=== PATIENT | male | born 1960 | race Caucasian/White ===

== ENCOUNTER → 2016-08-26 | Outpatient (CLI) | payer OTHER ==
[2015-02-26 05:15] VITALS: BP 160/95
[~2016-08-26] MED LIST: AMLODIPINE BESY1 C17 PO; CIPRO250 M1 PO; FLOMAX 0.40.4 MG/CAP PO; GLUCOPHAGE XR500 M2 PO; HCTZ 25MG25 MG PO; RT ADVAIR 228 DISKUS IH; SINGULAIR 110 MG/TAB PO
== END ==
LOC: LAB 07:53
DX: Z00.00 Encounter for general adult medical examination without abnormal findings (principal); Z12.5 Encounter for screening for malignant neoplasm of prostate; I10 Essential (primary) hypertension; E11.9 Type 2 diabetes mellitus without complications

== ENCOUNTER 2017-02-02 08:03 | Emergency (ER) | payer BC ==
[~2017-02-02] VITALS: Ht 180.3 cm; Wt 141.8 kg
[2017-02-02 10:58] VITALS: BP 136/88
== END 2017-02-02 10:48 | disposition short-term general hospital (02) ==
LOC: ED 08:03
DX: K35.80 Unspecified acute appendicitis (principal); E11.9 Type 2 diabetes mellitus without complications; Z79.84 Long term (current) use of oral hypoglycemic drugs; I10 Essential (primary) hypertension
CPT/HCPCS: J2270; J2405; J3010; Q9967

== ENCOUNTER 2017-02-13 07:42 | Inpatient (IN) | payer BC ==
[~2017-02-13] VITALS: Ht 180.3 cm; Wt 138.3 kg
[2017-02-13 11:31] VITALS: BP 135/72
[2017-02-13 11:35] VITALS: BP 135/72
[2017-02-13 15:03] VITALS: BP 121/65
[2017-02-13 18:16] VITALS: BP 127/67
[2017-02-13 23:24] VITALS: BP 140/72
[2017-02-14 02:52] VITALS: BP 126/85
[2017-02-14 06:21] VITALS: BP 134/80
[2017-02-14 11:13] VITALS: BP 131/76
[2017-02-14 15:13] VITALS: BP 151/83
[2017-02-14] MEDS ORDERED: GLUCOPHAGE PO (16:49)
[2017-02-14] MEDS ORDERED: DESYREL 100MG100 MG PO (16:50)
[2017-02-14 18:20] VITALS: BP 127/82
[2017-02-14 23:09] VITALS: BP 128/65
[2017-02-15 02:53] VITALS: BP 149/80
[2017-02-15 06:28] VITALS: BP 147/81
[2017-02-15] MEDS ORDERED: CIPRO 500MG TA500 MG PO (09:25)
[2017-02-15] MEDS ORDERED: METRONIDAZOLE500 M1 PO (09:26)
== END 2017-02-15 10:10 | disposition home or self-care (01) | DRG 373 ==
LOC: ED 07:42 → MED/SURG 11:01
PROVIDERS: ADMIT Nurse Practitioner Primary Care
DX: K65.0 Generalized (acute) peritonitis (principal); E11.9 Type 2 diabetes mellitus without complications; I10 Essential (primary) hypertension
CPT/HCPCS: J0744; J1885; J2270; J2405; J7030; Q9967

== ENCOUNTER → 2017-02-24 | Outpatient (CLI) | payer BC ==
[2017-02-15 06:28] VITALS: BP 147/81
[~2017-02-24] MED LIST changes: +CIPRO 500MG TA500 MG PO; +DESYREL 100MG100 MG PO; +GLUCOPHAGE PO; +METRONIDAZOLE500 M1 PO
== END ==
LOC: LAB 12:14
DX: R19.7 Diarrhea, unspecified (principal)

== ENCOUNTER → 2017-04-23 | Outpatient (CLI) | payer BC ==
[2017-04-23 07:59] LABS: HEMATOCRIT 46.3 % (42.0-52.0); HEMOGLOBIN 15.7 g/dL (13.5-18.0); MEAN CELL VOLUME 83 fl (78-100); MEAN CORPUSCULAR HEMOGLOBIN 28 pg (27-31); MEAN CORPUSCULAR HGB CONC 34 g/dL (33-37); PLATELET COUNT 303 K/mm3 (130-400); RED BLOOD COUNT 5.57 M/mm3 (4.20-5.60); RED CELL DISTRIBUTION WIDTH 16.4 % (11.5-14.5); WHITE BLOOD COUNT 7.9 K/mm3 (4.8-10.8)
[2017-04-23 08:12] LABS: ALBUMIN 4.1 g/dL (3.5-5.0); BUN/CREATININE RATIO 11.4 (6.0-26.0); CALCIUM 9.6 mg/dL (8.4-10.2); TOTAL BILIRUBIN 0.8 mg/dL (0.2-1.3); TOTAL PROTEIN 7.2 g/dL (6.3-8.2)
[2017-04-23 08:35] LABS: LYMPHOCYTE 18 % (20-51); MONOCYTE 9 % (3-10); NEUTROPHILS 71 % (42-75)
== END ==
LOC: LAB 07:46
PROVIDERS: Nurse Practitioner Family
DX: Z00.00 Encounter for general adult medical examination without abnormal findings (principal); Z12.5 Encounter for screening for malignant neoplasm of prostate; E11.9 Type 2 diabetes mellitus without complications; I10 Essential (primary) hypertension

== ENCOUNTER → 2018-02-04 | Outpatient (CLI) | payer OTHER ==
[2018-02-04 08:18] LABS: BASO # 0.1 (0.02-0.10); EOS # 0.3 (0.04-0.40); EOS % 4.5 % (0.0-4.0); HEMATOCRIT 38.9 % (42.0-52.0); HEMOGLOBIN 12.5 g/dL (13.5-18.0); MEAN CELL VOLUME 72 fl (78-100); MEAN CORPUSCULAR HEMOGLOBIN 23 pg (27-31); MEAN CORPUSCULAR HGB CONC 32 g/dL (33-37); MEAN PLATELET VOLUME 9.6 fl (7.4-10.4); MONO # 0.7 (0.20-0.80); NEU # 4.2 (1.40-6.50); PLATELET COUNT 423 K/mm3 (130-400); RED BLOOD COUNT 5.37 M/mm3 (4.20-5.60); RED CELL DISTRIBUTION WIDTH 17.2 % (11.5-14.5); WHITE BLOOD COUNT 7.3 K/mm3 (4.8-10.8)
[2018-02-04 08:35] LABS: ALBUMIN 4.1 g/dL (3.5-5.0); TOTAL BILIRUBIN 0.5 mg/dL (0.2-1.3)
== END ==
LOC: LAB 08:03
PROVIDERS: Family Medicine
DX: Z12.5 Encounter for screening for malignant neoplasm of prostate (principal); Z00.00 Encounter for general adult medical examination without abnormal findings; E11.9 Type 2 diabetes mellitus without complications; I10 Essential (primary) hypertension

== ENCOUNTER → 2018-03-09 | Day surgery (SDC) | payer OTHER | LOC: MSO 13:02 | DX: K22.70 Barrett's esophagus without dysplasia (principal); K21.9 Gastro-esophageal reflux disease without esophagitis; K44.9 Diaphragmatic hernia without obstruction or gangrene; I10 Essential (primary) hypertension; J45.909 Unspecified asthma, uncomplicated; G47.33 Obstructive sleep apnea (adult) (pediatric); E11.9 Type 2 diabetes mellitus without complications; Z79.84 Long term (current) use of oral hypoglycemic drugs; Z79.82 Long term (current) use of aspirin; Z79.899 Other long term (current) drug therapy | CPT/HCPCS: 00731; A4649; J2704; J7030 ==

== ENCOUNTER → 2018-06-14 | Outpatient (CLI) | payer OTHER ==
[~2018-06-14] VITALS: Ht 180.3 cm; Wt 140.9 kg
[~2018-06-14] MED LIST changes: +ADULT ASPIRIN81 MG PO; +DESYREL50 MG PO; +FERROUS SULFATE65 MG PO; +GLUCOSAMINE PO; +PROAIR HFA0.09 MG/AC IH
[2018-06-14 16:21] VITALS: BP 146/90
== END ==
LOC: AMSURD 15:30
DX: R07.9 Chest pain, unspecified (principal)

== ENCOUNTER → 2018-06-18 | Outpatient (CLI) | payer OTHER ==
[2018-06-14 16:21] VITALS: BP 146/90
== END ==
LOC: CARDLAB 13:46 → CARDREHAB 14:57
DX: R07.9 Chest pain, unspecified (principal)

== ENCOUNTER → 2019-02-15 | Outpatient (CLI) | payer OTHER ==
[2018-06-14 16:21] VITALS: BP 146/90
[2019-02-15 11:54] LABS: BASO # 0.1 (0.02-0.10); EOS # 0.4 (0.04-0.40); EOS % 4.6 % (0.0-4.0); HEMATOCRIT 46.5 % (42.0-52.0); HEMOGLOBIN 15.8 g/dL (13.5-18.0); LYMPH# 1.9 (1.50-4.00); MEAN CELL VOLUME 90 fl (78-100); MEAN CORPUSCULAR HEMOGLOBIN 31 pg (27-31); MEAN CORPUSCULAR HGB CONC 34 g/dL (33-37); MONO # 0.8 (0.20-0.80); NEU # 5.1 (1.40-6.50); PLATELET COUNT 298 K/mm3 (130-400); RED BLOOD COUNT 5.18 M/mm3 (4.20-5.60); RED CELL DISTRIBUTION WIDTH 13.3 % (11.5-14.5); WHITE BLOOD COUNT 8.3 K/mm3 (4.8-10.8)
[2019-02-15 11:55] LABS: ALBUMIN 4.2 g/dL (3.5-5.0); POTASSIUM 3.7 mmol/L (3.5-5.1)
[2019-02-15 11:57] LABS: TOTAL PROTEIN 7.1 g/dL (6.4-8.3)
[2019-02-15 11:59] LABS: TOTAL BILIRUBIN 0.7 mg/dL (0.2-1.2)
== END ==
LOC: LAB 11:30
PROVIDERS: Family Medicine
DX: Z00.00 Encounter for general adult medical examination without abnormal findings (principal); Z12.5 Encounter for screening for malignant neoplasm of prostate; E11.9 Type 2 diabetes mellitus without complications; I10 Essential (primary) hypertension

== ENCOUNTER → 2019-03-02 | Day surgery (SDC) | payer OTHER ==
[2018-06-14 16:21] VITALS: BP 146/90
== END ==
LOC: MSO 13:32
DX: H25.12 Age-related nuclear cataract, left eye (principal); H25.041 Posterior subcapsular polar age-related cataract, right eye; D64.9 Anemia, unspecified; J44.9 Chronic obstructive pulmonary disease, unspecified; I10 Essential (primary) hypertension; E11.9 Type 2 diabetes mellitus without complications; Z79.84 Long term (current) use of oral hypoglycemic drugs; Z90.49 Acquired absence of other specified parts of digestive tract; Z79.899 Other long term (current) drug therapy; Z79.82 Long term (current) use of aspirin; K21.9 Gastro-esophageal reflux disease without esophagitis; G47.33 Obstructive sleep apnea (adult) (pediatric); E66.01 Morbid (severe) obesity due to excess calories
CPT/HCPCS: 00142; J0171; J2250; J3010; V2632

== ENCOUNTER → 2019-03-30 | Day surgery (SDC) | payer OTHER ==
[2018-06-14 16:21] VITALS: BP 146/90
== END | disposition home or self-care (01) ==
LOC: MSO 12:01
DX: H25.11 Age-related nuclear cataract, right eye (principal); J44.9 Chronic obstructive pulmonary disease, unspecified; I10 Essential (primary) hypertension; D64.9 Anemia, unspecified; R73.03 Prediabetes; Z90.49 Acquired absence of other specified parts of digestive tract; Z79.899 Other long term (current) drug therapy; Z79.84 Long term (current) use of oral hypoglycemic drugs
CPT/HCPCS: 00142; J0171; J2250; V2632

== ENCOUNTER → 2019-04-13 | Outpatient (CLI) | payer OTHER ==
[2018-06-14 16:21] VITALS: BP 146/90
== END ==
LOC: LAB 17:20
DX: N39.0 Urinary tract infection, site not specified (principal)

== ENCOUNTER → 2019-04-26 | Outpatient (CLI) | payer OTHER ==
[2018-06-14 16:21] VITALS: BP 146/90
== END ==
LOC: RAD 12:54
DX: N20.0 Calculus of kidney (principal); N28.1 Cyst of kidney, acquired; Z90.49 Acquired absence of other specified parts of digestive tract
CPT/HCPCS: Q9967

== ENCOUNTER → 2019-06-02 | Outpatient (CLI) | payer OTHER ==
[2018-06-14 16:21] VITALS: BP 146/90
[2019-06-02 15:44] LABS: ALBUMIN 4.2 g/dL (3.5-5.0); CALCIUM 9.2 mg/dL (8.3-10.5); POTASSIUM 3.5 mmol/L (3.5-5.1); TOTAL BILIRUBIN 0.8 mg/dL (0.2-1.2); TOTAL PROTEIN 7.3 g/dL (6.4-8.3)
== END ==
LOC: LAB 14:03
PROVIDERS: Family Medicine
DX: Z00.00 Encounter for general adult medical examination without abnormal findings (principal); Z12.5 Encounter for screening for malignant neoplasm of prostate; E11.9 Type 2 diabetes mellitus without complications; I10 Essential (primary) hypertension

== ENCOUNTER → 2019-11-21 | Outpatient (CLI) | payer OTHER ==
[2018-06-14 16:21] VITALS: BP 146/90
[~2019-11-21] MED LIST changes: +ADULT ASPIRIN R81 MG PO; -ADULT ASPIRIN81 MG PO; +DAILY VITAMIN1 EAC3 PO; +NORCO 325 MG-51 TA1 PO; +OMEGA 3 1,0001 EACH PO
== END ==
LOC: LAB 13:55
DX: Z20.828 Contact with and (suspected) exposure to other viral communicable diseases (principal)

== ENCOUNTER 2019-12-07 15:58 | Emergency (ER) | payer OTHER ==
[~2019-12-07 15:58] MED LIST changes: -DAILY VITAMIN1 EAC3 PO; -NORCO 325 MG-51 TA1 PO; -OMEGA 3 1,0001 EACH PO
[2019-12-07 16:46] LABS: BASO # 0.1 (0.02-0.10); EOS # 0.4 (0.04-0.40); EOS % 3.4 % (0.0-4.0); HEMATOCRIT 47.6 % (42.0-52.0); HEMOGLOBIN 16.3 g/dL (13.5-18.0); LYMPH# 1.9 (1.50-4.00); MEAN CELL VOLUME 90 fl (78-100); MEAN CORPUSCULAR HEMOGLOBIN 31 pg (27-31); MEAN CORPUSCULAR HGB CONC 34 g/dL (33-37); NEU # 6.8 (1.40-6.50); PLATELET COUNT 330 K/mm3 (130-400); RED CELL DISTRIBUTION WIDTH 13.7 % (11.5-14.5); WHITE BLOOD COUNT 10.3 K/mm3 (4.8-10.8)
[2019-12-07 16:51] LABS: POTASSIUM 3.8 mmol/L (3.5-5.1)
[2019-12-07 16:52] LABS: CALCIUM 9.1 mg/dL (8.3-10.5)
[2019-12-07 16:53] LABS: TOTAL PROTEIN 6.6 g/dL (6.4-8.3)
[2019-12-07 16:55] LABS: TOTAL BILIRUBIN 0.6 mg/dL (0.2-1.2)
[2019-12-07 17:48] VITALS: BP 97/59
[2019-12-07] MEDS ORDERED: NORCO 325 MG-51 TA1 PO (17:56)
[2019-12-07] MEDS ORDERED: DAILY VITAMIN1 EAC3 PO (17:57)
[2019-12-07] MEDS ORDERED: OMEGA 3 1,0001 EACH PO (17:58)
== END 2019-12-07 18:11 | disposition home or self-care (01) ==
LOC: ED 15:58
PROVIDERS: Physician Assistant
DX: E86.0 Dehydration (principal); E11.9 Type 2 diabetes mellitus without complications; I10 Essential (primary) hypertension; Z20.828 Contact with and (suspected) exposure to other viral communicable diseases; Z79.82 Long term (current) use of aspirin; Z79.84 Long term (current) use of oral hypoglycemic drugs; Z90.49 Acquired absence of other specified parts of digestive tract
CPT/HCPCS: J7030

== ENCOUNTER → 2020-04-17 | Outpatient (CLI) | payer OTHER ==
[~2020-04-17] MED LIST changes: +DAILY VITAMIN1 EAC3 PO; +NORCO 325 MG-51 TA1 PO; +OMEGA 3 1,0001 EACH PO
[2020-04-17 08:05] LABS: HEMATOCRIT 49.5 % (42.0-52.0); HEMOGLOBIN 16.8 g/dL (13.5-18.0); RED BLOOD COUNT 5.6 M/mm3 (4.20-5.60); RED CELL DISTRIBUTION WIDTH 13.2 % (11.5-14.5); WHITE BLOOD COUNT 9.8 K/mm3 (4.8-10.8)
[2020-04-17 08:28] LABS: ALBUMIN 4.2 g/dL (3.4-4.8); POTASSIUM 3.9 mmol/L (3.5-5.1)
[2020-04-17 08:30] LABS: CALCIUM 9.5 mg/dL (8.3-10.5)
[2020-04-17 08:31] LABS: TOTAL PROTEIN 7.8 g/dL (6.2-8.1)
[2020-04-17 08:33] LABS: TOTAL BILIRUBIN 0.6 mg/dL (0.2-1.2)
== END ==
LOC: LAB 07:43
PROVIDERS: Family Medicine
DX: Z00.00 Encounter for general adult medical examination without abnormal findings (principal); Z12.5 Encounter for screening for malignant neoplasm of prostate; I10 Essential (primary) hypertension; K22.70 Barrett's esophagus without dysplasia; G47.33 Obstructive sleep apnea (adult) (pediatric); E11.9 Type 2 diabetes mellitus without complications; J30.9 Allergic rhinitis, unspecified

== ENCOUNTER → 2020-08-08 | Outpatient (REF) | LOC: LAB 08:01 | DX: Z20.822 Contact with and (suspected) exposure to COVID-19 (principal) ==

== ENCOUNTER → 2021-01-18 | Outpatient (CLI) | payer OTHER | LOC: LAB 15:20 | DX: Z01.818 Encounter for other preprocedural examination (principal); Z20.822 Contact with and (suspected) exposure to COVID-19 ==

== ENCOUNTER → 2021-05-24 | Outpatient (CLI) | payer OTHER ==
[2021-05-24 10:24] LABS: BASO # 0.07 K/mm3 (0.02-0.10); EOS # 0.36 K/mm3 (0.04-0.40); EOS % 3.7 % (0.0-4.0); HEMATOCRIT 45.9 % (42.0-52.0); HEMOGLOBIN 14.8 g/dL (13.5-18.0); LYMPH# 2.05 K/mm3 (1.50-4.00); MEAN CELL VOLUME 84 fl (78-100); MEAN CORPUSCULAR HEMOGLOBIN 27 pg (27-31); MEAN CORPUSCULAR HGB CONC 32 g/dL (33-37); MEAN PLATELET VOLUME 9.5 fl (7.4-10.4); MONO # 0.74 K/mm3 (0.20-0.80); NEU # 6.53 K/mm3 (1.40-6.50); PLATELET COUNT 352 K/mm3 (130-400); RED BLOOD COUNT 5.47 M/mm3 (4.20-5.60); RED CELL DISTRIBUTION WIDTH 13.4 % (11.5-14.5); WHITE BLOOD COUNT 9.8 K/mm3 (4.8-10.8)
[2021-05-24 10:26] LABS: POTASSIUM 4.1 mmol/L (3.5-5.1)
[2021-05-24 10:27] LABS: ALBUMIN 4.1 g/dL (3.4-4.8)
[2021-05-24 10:28] LABS: CALCIUM 9.6 mg/dL (8.3-10.5)
[2021-05-24 10:29] LABS: TOTAL PROTEIN 7.2 g/dL (6.2-8.1)
[2021-05-24 10:31] LABS: TOTAL BILIRUBIN 0.6 mg/dL (0.2-1.2)
[2021-05-24 12:08] LABS: URINE APPEARANCE CLEAR; URINE COLOR YELLOW
[2021-05-24 12:09] LABS: URINE BILIRUBIN NEGATIVE (NEGATIVE); URINE BLOOD NEGATIVE (NEGATIVE); URINE GLUCOSE NEGATIVE (NEGATIVE); URINE KETONE NEGATIVE (NEGATIVE); URINE LEUKOCYTE ESTERASE NEGATIVE (NEGATIVE); URINE MUCUS PRESENT (NOT PRESENT); URINE NITRATE NEGATIVE (NEGATIVE); URINE PROTEIN(semi-quant) TRACE mg/dL (NEGATIVE); URINE UROBILINOGEN NORMAL (NORMAL)
== END ==
LOC: LAB 10:00
PROVIDERS: Family Medicine
DX: Z00.00 Encounter for general adult medical examination without abnormal findings (principal); E78.5 Hyperlipidemia, unspecified; E11.9 Type 2 diabetes mellitus without complications; N39.0 Urinary tract infection, site not specified

== ENCOUNTER → 2022-01-01 | Outpatient (REF) ==
[~2022-01-01] MED LIST changes: +ALBUTEROL2.5 MG/3 M IH; +BENZONATATE200 MG PO; +HYDROCODONE PO473 ML PO; +LEVOFLOXACIN750 MG PO; +PREDNISONE20 MG PO
== END ==
LOC: LAB 11:09
DX: Z20.822 Contact with and (suspected) exposure to COVID-19 (principal)

== ENCOUNTER → 2022-01-01 | Day surgery (SDC) | payer OTHER | LOC: MSO 11:04 | DX: H25.041 Posterior subcapsular polar age-related cataract, right eye (principal) ==

== ENCOUNTER → 2022-01-02 | Outpatient (CLI) | payer OTHER | LOC: LAB 16:41 | DX: Z20.822 Contact with and (suspected) exposure to COVID-19 (principal) ==

== ENCOUNTER → 2022-01-07 | Outpatient (CLI) | payer OTHER ==
[~2022-01-07] VITALS: Ht 180.3 cm; Wt 144.9 kg
[2022-01-07 11:27] LABS: HEMATOCRIT 39.2 % (42.0-52.0); HEMOGLOBIN 12.2 g/dL (13.5-18.0); MEAN CELL VOLUME 72 fl (78-100); MEAN CORPUSCULAR HEMOGLOBIN 22 pg (27-31); MEAN CORPUSCULAR HGB CONC 31 g/dL (33-37); MEAN PLATELET VOLUME 8.7 fl (7.4-10.4); PLATELET COUNT 396 K/mm3 (130-400); RED BLOOD COUNT 5.44 M/mm3 (4.20-5.60); RED CELL DISTRIBUTION WIDTH 16.8 % (11.5-14.5)
[2022-01-07 11:35] LABS: ALBUMIN 4.3 g/dL (3.4-4.8); POTASSIUM 3.7 mmol/L (3.5-5.1)
[2022-01-07 11:36] LABS: CALCIUM 9.6 mg/dL (8.3-10.5)
[2022-01-07 11:37] LABS: TOTAL PROTEIN 7.4 g/dL (6.2-8.1)
[2022-01-07 11:39] LABS: TOTAL BILIRUBIN 0.4 mg/dL (0.2-1.2)
[2022-01-07 11:44] LABS: MAGNESIUM 1.7 mg/dL (1.60-2.60)
[2022-01-07 12:16] LABS: LYMPHOCYTE 17 % (20-51); MONOCYTE 7 % (3-10); NEUTROPHILS 58 % (42-75)
[2022-01-07 13:05] VITALS: BP 107/84
[2022-01-07 14:33] LABS: POTASSIUM 3.6 mmol/L (3.5-5.1)
== END ==
LOC: LAB 11:11 → AMSURD 11:11
PROVIDERS: Nurse Practitioner Family
DX: R05.1 Acute cough (principal); R19.5 Other fecal abnormalities; M79.10 Myalgia, unspecified site
CPT/HCPCS: J7030

== ENCOUNTER 2022-01-14 14:11 | Emergency (ER) | payer OTHER ==
[~2022-01-14] VITALS: Ht 182.9 cm; Wt 144.9 kg
[~2022-01-14 14:11] MED LIST changes: -ALBUTEROL2.5 MG/3 M IH; -BENZONATATE200 MG PO; -HYDROCODONE PO473 ML PO; -LEVOFLOXACIN750 MG PO; -PREDNISONE20 MG PO
[2022-01-14 14:59] LABS: HEMATOCRIT 39.4 % (42.0-52.0); HEMOGLOBIN 12.2 g/dL (13.5-18.0); MEAN CELL VOLUME 73 fl (78-100); MEAN CORPUSCULAR HEMOGLOBIN 23 pg (27-31); MEAN CORPUSCULAR HGB CONC 31 g/dL (33-37); PLATELET COUNT 417 K/mm3 (130-400); RED BLOOD COUNT 5.42 M/mm3 (4.20-5.60); RED CELL DISTRIBUTION WIDTH 17.3 % (11.5-14.5); WHITE BLOOD COUNT 13.2 K/mm3 (4.8-10.8)
[2022-01-14 15:10] LABS: ALBUMIN 4.1 g/dL (3.4-4.8)
[2022-01-14 15:11] LABS: POTASSIUM 3.7 mmol/L (3.5-5.1)
[2022-01-14 15:12] LABS: CALCIUM 9.4 mg/dL (8.3-10.5)
[2022-01-14 15:13] LABS: TOTAL PROTEIN 7.4 g/dL (6.2-8.1)
[2022-01-14 15:15] LABS: TOTAL BILIRUBIN 0.6 mg/dL (0.2-1.2)
[2022-01-14 15:57] LABS: LYMPHOCYTE 17 % (20-51); MONOCYTE 5 % (3-10); NEUTROPHILS 59 % (42-75)
[2022-01-14 16:05] LABS: ERYTHROCYTE SEDIMENTATION RATE 7 mm/hr (0-20)
[2022-01-14] MEDS ORDERED: ALBUTEROL2.5 MG/3 M IH (16:06)
[2022-01-14] MEDS ORDERED: HYDROCODONE PO473 ML PO (16:06)
[2022-01-14] MEDS ORDERED: BENZONATATE200 MG PO (16:06)
[2022-01-14] MEDS ORDERED: PREDNISONE20 MG PO (16:06)
[2022-01-14] MEDS ORDERED: LEVOFLOXACIN750 MG PO (16:06)
[2022-01-14 16:26] VITALS: BP 121/75
== END 2022-01-14 16:27 | disposition home or self-care (01) ==
LOC: ED 14:11
PROVIDERS: Physician Assistant
DX: J44.1 Chronic obstructive pulmonary disease with (acute) exacerbation (principal)

== ENCOUNTER → 2022-01-29 | Day surgery (SDC) | payer OTHER ==
[~2022-01-29] MED LIST changes: +ALBUTEROL2.5 MG/3 M IH; +BENZONATATE200 MG PO; +HYDROCODONE PO473 ML PO; +LEVOFLOXACIN750 MG PO; +PREDNISONE20 MG PO
== END ==
LOC: MSO 11:08
DX: H26.492 Other secondary cataract, left eye (principal)

== ENCOUNTER → 2022-02-12 | Outpatient (CLI) | payer OTHER | LOC: VAS 13:47 → RAD 14:00 | DX: R05.3 Chronic cough (principal) ==

== ENCOUNTER 2022-09-02 15:40 | Emergency (ER) | payer BC ==
[~2022-09-02] VITALS: Ht 180.3 cm; Wt 130.0 kg
[2022-09-02] MEDS ORDERED: ANTIFUNGAL30 GM TP (15:57)
[2022-09-02 15:58] LABS: EOS # 0.31 K/mm3 (0.04-0.40); EOS % 3.5 % (0.0-4.0); HEMATOCRIT 37.3 % (42.0-52.0); HEMOGLOBIN 11.3 g/dL (13.5-18.0); LYMPH# 1.35 K/mm3 (1.50-4.00); MEAN CELL VOLUME 68 fl (78-100); MEAN CORPUSCULAR HEMOGLOBIN 21 pg (27-31); MEAN CORPUSCULAR HGB CONC 30 g/dL (33-37); MEAN PLATELET VOLUME 9.1 fl (7.4-10.4); PLATELET COUNT 419 K/mm3 (130-400); RED BLOOD COUNT 5.46 M/mm3 (4.20-5.60); RED CELL DISTRIBUTION WIDTH 18.5 % (11.5-14.5); WHITE BLOOD COUNT 8.8 K/mm3 (4.8-10.8)
[2022-09-02 16:10] LABS: ALBUMIN 4.2 g/dL (3.4-4.8); POTASSIUM 3.5 mmol/L (3.5-5.1); SODIUM 136 mmol/L (136-145)
[2022-09-02 16:11] LABS: CALCIUM 9.4 mg/dL (8.3-10.5)
[2022-09-02 16:12] LABS: GLUCOSE 139 mg/dL (75-110); TOTAL PROTEIN 6.9 g/dL (6.2-8.1)
[2022-09-02 16:13] LABS: CARBON DIOXIDE 24 mmol/L (23-31)
[2022-09-02 16:14] LABS: TOTAL BILIRUBIN 0.3 mg/dL (0.2-1.2)
[2022-09-02 16:17] LABS: AST-SGOT 16 U/L (5-34)
[2022-09-02 16:19] LABS: ALT/SGPT 22 U/L (0-55)
[2022-09-02 16:27] LABS: TROPONIN-I < 0.030 ng/mL (<0.030)
[2022-09-02] MEDS ORDERED: VALACYCLOVIR1 GM PO (16:56)
[2022-09-02] MEDS ORDERED: NORCO 325 MG-51 TA1 PO (17:01)
[2022-09-02 17:10] VITALS: BP 125/85
== END 2022-09-02 17:15 | disposition home or self-care (01) ==
LOC: ED 15:40
PROVIDERS: Physician Assistant
DX: B02.9 Zoster without complications (principal)

== ENCOUNTER → 2023-03-10 | Outpatient (CLI) | payer BC ==
[~2023-03-10] MED LIST changes: +ANTIFUNGAL30 GM TP; +VALACYCLOVIR1 GM PO
== END ==
LOC: LAB 14:28
DX: Z20.822 Contact with and (suspected) exposure to COVID-19 (principal)

== ENCOUNTER 2023-10-08 06:04 | Emergency (ER) | payer BC ==
[~2023-10-08] VITALS: Ht 167.6 cm; Wt 134.2 kg
[~2023-10-08 06:04] MED LIST changes: +BENAZEPRIL40 MG PO; +METFORMIN HYD1000 MG PO; +NORVASC 10MG10 MG PO
[2023-10-08] MEDS ORDERED: NS 1,000 ML IV ONE (06:45)
[2023-10-08 06:59] LABS: BASO # 0.11 K/mm3 (0.02-0.10); EOS # 0.75 K/mm3 (0.04-0.40); EOS % 10.2 % (0.0-4.0); HEMOGLOBIN 11.1 g/dL (13.5-18.0); LYMPH# 1.73 K/mm3 (1.50-4.00); MEAN CELL VOLUME 70 fl (78-100); MEAN CORPUSCULAR HEMOGLOBIN 21 pg (27-31); MEAN CORPUSCULAR HGB CONC 30 g/dL (33-37); MEAN PLATELET VOLUME 9.1 fl (7.4-10.4); MONO # 0.53 K/mm3 (0.20-0.80); NEU # 4.21 K/mm3 (1.40-6.50); PLATELET COUNT 400 K/mm3 (130-400); RED BLOOD COUNT 5.32 M/mm3 (4.20-5.60); RED CELL DISTRIBUTION WIDTH 19.1 % (11.5-14.5); WHITE BLOOD COUNT 7.4 K/mm3 (4.8-10.8)
[2023-10-08 07:03] LABS: ALBUMIN 3.9 g/dL (3.4-4.8); SODIUM 139 mmol/L (136-145)
[2023-10-08 07:04] LABS: CALCIUM 9.2 mg/dL (8.3-10.5)
[2023-10-08 07:05] LABS: GLUCOSE 138 mg/dL (75-110); TOTAL PROTEIN 6.5 g/dL (6.2-8.1)
[2023-10-08 07:06] LABS: CARBON DIOXIDE 21 mmol/L (23-31)
[2023-10-08 07:07] LABS: TOTAL BILIRUBIN 0.5 mg/dL (0.2-1.2)
[2023-10-08 07:11] LABS: AST-SGOT 19 U/L (5-34)
[2023-10-08 07:12] LABS: ALT/SGPT 22 U/L (0-55)
[2023-10-08 07:20] LABS: TROPONIN-I < 0.030 ng/mL (0.00-0.033)
[2023-10-08] MEDS ORDERED: CYCLOBENZAPRINE10 M1 PO (08:08)
[2023-10-08 08:15] VITALS: BP 140/91
[2023-10-08] MEDS ORDERED: Cyclobenzaprine 10 MG TAB PO ONE (08:15)
== END 2023-10-08 08:15 | disposition home or self-care (01) ==
LOC: ED 06:04
PROVIDERS: Family Medicine
DX: R07.89 Other chest pain (principal); G47.33 Obstructive sleep apnea (adult) (pediatric); I45.4 Nonspecific intraventricular block; Z68.42 Body mass index [BMI] 45.0-49.9, adult
CPT/HCPCS: J7030